=== PATIENT | female | born 1945 ===

== ENCOUNTER 2020-07-12 11:30 | Inpatient (IN) | payer OTHER ==
[~2020-07-12] VITALS: Ht 167.6 cm; Wt 86.2 kg
[2020-08-28] MEDS ORDERED: ENALAPRIL MALEA10 MG PO (15:04)
[2020-08-28] MEDS ORDERED: SIMVASTATIN10 MG PO (15:04)
[2020-08-28] MEDS ORDERED: HYDROCHLOROTHIA25 MG PO (15:05)
[2020-09-04] MEDS ORDERED: ATORVASTATIN CA10 MG (13:38)
[2020-09-04] MEDS ORDERED: IBUPROFEN800 MG (13:38)
[2020-09-05] MEDS ORDERED: OXYC1TAB9 PO (05:51)
[2020-09-05] MEDS ORDERED: INTEGRA PLUS C1 EACH PO (05:51)
[2020-09-05] MEDS ORDERED: BACTRIM DS TAB1 EACH PO (05:51)
[2020-09-05] MEDS ORDERED: XARELTO10 MG PO (05:51)
== END 2020-09-05 15:04 | DRG 470 ==
LOC: SURH 09-03 05:00 → O/R 09-03 05:00 → SURH 09-03 08:30
PROVIDERS: ADMIT Orthopaedic Surgery Sports Medicine; ATTEND Orthopaedic Surgery Sports Medicine
PROC: 0SRC0J9 Replacement of Right Knee Joint with Synthetic Substitute, Cemented, Open Approach (ICD-10-PCS; principal; 2020-09-03 08:30)
DX: M17.11 Unilateral primary osteoarthritis, right knee (principal); I10 Essential (primary) hypertension; Z20.822 Contact with and (suspected) exposure to COVID-19